=== PATIENT | male | born 1940 | race Caucasian/White ===

== ENCOUNTER 2019-11-10 11:26 | Outpatient (CLI) | payer MEDICARE ==
[2019-11-10 15:17] LABS: #Eosinphils 0.2 thou/uL (0.0-0.7); #Lymphocytes 2.5 thou/uL (1.20-3.40); #Monocytes 0.8 thou/uL (0.11-0.59); #Neutrophils 4.3 thou/uL (1.40-6.50); %Basophils 0.6 % (0.0-1.0); %Eosinophils 2.9 % (0.0-10.0); %Lymphocytes 31.9 % (21.0-51.0); %Monocytes 9.9 % (0.0-10.0); %Neutrophils 54.7 % (42.0-75.0); Hemoglobin 13.7 g/dL (14.0-18.0); Mean Corpuscular HGB CONC 33.1 g/dL (32.0-36.0); Mean Corpuscular Hemoglobin 32.1 pg (27.0-31.0); Mean Corpuscular Volume 96.9 fL (78.0-98.0); Mean Platelet Volume 7.7 fL (7.4-10.4); Platelet Count 159 thou/uL (130-400); RBC Distribution Width 11.7 % (11.5-14.5); Red Blood Cell (RBC) Count 4.26 mill/uL (4.70-6.10); White Blood Cell (WBC) Count 7.8 thou/uL (4.8-10.8)
[2019-11-10 15:24] LABS: Anion Gap 11 mmol/L (10-20); BUN (Urea Nitrogen) 28 mg/dL (8.4-25.7); Calc. Creatinine Clearance 0 mL/min (70-130); Calcium 9.3 mg/dL (7.8-10.44); Carbon Dioxide 29 mmol/L (23-31); Chloride 104 mmol/L (98-107); Estimated GFR-MDRD 49; Glucose 89 mg/dL (83-110); Potassium 3.9 mmol/L (3.5-5.1); Sodium 140 mmol/L (136-145)
== END 2019-11-10 11:27 | disposition home or self-care (01) ==
LOC: LABBT 11:26
PROVIDERS: ATTEND Surgery
DX: Z01.818 Encounter for other preprocedural examination (principal); K40.90 Unilateral inguinal hernia, without obstruction or gangrene, not specified as recurrent
CPT/HCPCS: 80048; 85025

== ENCOUNTER 2019-11-12 11:30 | Day surgery (SDC) | payer MEDICARE ==
[~2019-11-12 11:30] MED LIST: Lidocaine 1% PF 5 ML VIAL ONE; PROPOFOL 200 MG/20 ML VIAL ONE
[2019-11-12] MEDS ORDERED: Midazolam HCl 2 mg/2 ml Vial ONE (13:14)
[2019-11-12] MEDS ORDERED: Fentanyl 250 MCG/5 ML VIAL ONE (13:14)
[2019-11-12] MEDS ORDERED: Bupivacaine 0.25% HCL 30 ML VIAL ONE (13:28)
[2019-11-12] MEDS ORDERED: Lidocaine 1% w/Epinephrine 1:100K 20 ML VIAL ONE (13:28)
[2019-11-12] MEDS ORDERED: Bupivacaine PF 0.5% 30 ML VIAL ONE (13:34)
--- NOTE | 2019-11-12 16:24 | OP ---
DATE OF PROCEDURE: 11/12/2019 PREOPERATIVE DIAGNOSIS: Right inguinal hernia. POSTOPERATIVE DIAGNOSIS: Right inguinal hernia. PROCEDURE PERFORMED: Right inguinal hernia repair with mesh. ANESTHESIA: General. ESTIMATED BLOOD LOSS: Minimal. COMPLICATIONS: None. SPECIMENS: None. FINDINGS: Right inguinal hernia. DESCRIPTION OF PROCEDURE: The patient was taken to the operating room and laid supine on the operating room table. After general anesthetic was obtained, the right groin was shaved, prepped, and draped in a sterile fashion. An oblique incision was made above the pubic tubercle in the right lower quadrant, cautery dissected down through Diana's to expose the external oblique. External oblique fibers were opened along their course to the external ring. Contents of the inguinal canal were dissected in the backside of the external oblique. The cord structures were mobilized on the pubic tubercle using a Teresa drain. The ilioinguinal nerve was found and segmentally removed to prevent postoperative pain. An indirect hernia sac was found and a high ligation was performed using 2-0 silk. There was no direct defect. The PHS extended mesh brought into the sterile field. The preperitoneal space was bluntly dissected through the internal ring. The underlay was placed in the internal ring and its fiber was laid out flat against the posterior abdominal wall. The overlay was laid in the floor of the inguinal canal. The overlay was sewn distally to the pubic tubercle, medially to the transverse arch, laterally to the shelving edge of inguinal ligament using permanent braided suture, the two ends of cut mesh were reapproximated at the shelving edge of inguinal ligament to reform the internal ring. The extra mesh was tucked back under the external oblique proximally. The wound was irrigated. Local anesthetic was applied. The tunneled cath for postoperative pain was started from above the incision, left on top of the mesh. The external oblique was closed using running 3-0 Vicryl, Diana's closed using 3-0 Vicryl, skin was closed using running 4-0 Monocryl and Dermabond. The patient was sent to Recovery in stable condition. All instrument counts, lap counts, and needle counts were correct. Job ID: [id number]
== END 2019-11-12 17:20 | disposition home or self-care (01) ==
LOC: SDC 11:30
PROVIDERS: ATTEND Surgery
PROC: 0YU50JZ Supplement Right Inguinal Region with Synthetic Substitute, Open Approach (ICD-10-PCS; principal; 2019-11-12)
DX: K40.90 Unilateral inguinal hernia, without obstruction or gangrene, not specified as recurrent (principal); I10 Essential (primary) hypertension; E78.5 Hyperlipidemia, unspecified; Z79.899 Other long term (current) drug therapy; Z88.8 Allergy status to other drugs, medicaments and biological substances
CPT/HCPCS: 49505; A4306; C1781; J0690; J2001; J2250; J2704; J3010; S0020

== ENCOUNTER → 2021-07-26 | Day surgery (SDC) | payer MEDICARE ==
[~2021-07-26] MED LIST changes: -PROPOFOL 200 MG/20 ML VIAL ONE; +Sodium Bicarbonate 2.5 MEQ/5 ML VIAL ONE
== END ==
LOC: ULT 12:32
PROVIDERS: ATTEND Student in an Organized Health Care Education/Training Program
PROC: 0G9G3ZX Drainage of Left Thyroid Gland Lobe, Percutaneous Approach, Diagnostic (ICD-10-PCS; principal; 2021-07-26)
DX: E04.2 Nontoxic multinodular goiter (principal); E78.5 Hyperlipidemia, unspecified; I10 Essential (primary) hypertension; K21.9 Gastro-esophageal reflux disease without esophagitis; R40.0 Somnolence; Z85.46 Personal history of malignant neoplasm of prostate; Z79.1 Long term (current) use of non-steroidal anti-inflammatories (NSAID); Z79.899 Other long term (current) drug therapy; Z88.8 Allergy status to other drugs, medicaments and biological substances
CPT/HCPCS: 60100; 76942; 88173

== ENCOUNTER 2021-11-24 09:07 | Outpatient (CLI) | payer MEDICARE | END 2021-11-24 09:08 | disposition home or self-care (01) | LOC: NM 09:07 | PROVIDERS: ATTEND Psychiatry & Neurology Neurology | DX: G30.1 Alzheimer's disease with late onset (principal); F02.80 Dementia in other diseases classified elsewhere, unspecified severity, without behavioral disturbance, psychotic disturbance, mood disturbance, and anxiety | CPT/HCPCS: 78803; A9584 ==

== ENCOUNTER → 2021-12-06 | Day surgery (SDC) | payer MEDICARE | LOC: ULT 12:30 | PROVIDERS: ATTEND Student in an Organized Health Care Education/Training Program | PROC: 0G9G3ZX Drainage of Left Thyroid Gland Lobe, Percutaneous Approach, Diagnostic (ICD-10-PCS; principal; 2021-12-06) | DX: E04.1 Nontoxic single thyroid nodule (principal); Z88.8 Allergy status to other drugs, medicaments and biological substances | CPT/HCPCS: 60100; 76942; 88173; 88305 ==

== ENCOUNTER 2021-12-08 03:43 | Inpatient (IN) | payer MEDICARE ==
[2021-12-08] MEDS ORDERED: Ondansetron PF 4 MG/2 ML Vial ONE (03:59)
[2021-12-08 04:46] LABS: #Eosinphils 0.3 thou/uL (0.0-0.7); #Lymphocytes 2.3 thou/uL (1.20-3.40); #Monocytes 0.6 thou/uL (0.11-0.59); %Basophils 0.4 % (0.0-1.0); %Eosinophils 3.1 % (0.0-10.0); %Lymphocytes 24.6 % (21.0-51.0); %Monocytes 6.9 % (0.0-10.0); Mean Corpuscular HGB CONC 33.2 g/dL (32.0-36.0); Mean Corpuscular Volume 99.5 fL (78.0-98.0); Platelet Count 123 thou/uL (130-400); RBC Distribution Width 11.5 % (11.5-14.5); Red Blood Cell (RBC) Count 3.93 mill/uL (4.70-6.10); White Blood Cell (WBC) Count 9.2 thou/uL (4.8-10.8)
[2021-12-08 05:06] LABS: ALT (SGPT) 23 U/L (8-55); AST (SGOT) 17 U/L (5-34); Albumin 3.4 g/dL (3.4-4.8); Alkaline Phosphatase 56 U/L (40-110); Anion Gap 14 mmol/L (10-20); BUN (Urea Nitrogen) 29 mg/dL (8.4-25.7); Bilirubin, Total 0.4 mg/dL (0.2-1.2); Calc. Creatinine Clearance 0 mL/min (70-130); Calcium 8.3 mg/dL (7.8-10.44); Carbon Dioxide 22 mmol/L (23-31); Chloride 108 mmol/L (98-107); Globulin 2.6 g/dL (2.4-3.5); Glucose 150 mg/dL (83-110); Potassium 3.4 mmol/L (3.5-5.1); Sodium 141 mmol/L (136-145)
[2021-12-08 05:27] LABS: CKMB 1.4 ng/mL (0-6.6)
[2021-12-08] MEDS ORDERED: Potassium Chloride 20 MEQ TAB PO SCH (06:15)
[2021-12-08 07:58] LABS: Troponin I 0.631 ng/mL (< 0.028)
[2021-12-08] MEDS ORDERED: Ondansetron PF 4 MG/2 ML Vial IVP PRN (09:52)
[2021-12-08] MEDS ORDERED: Acetaminophen 500 MG TAB PO PRN (09:52)
[2021-12-08] MEDS ORDERED: Aspirin 81 mg Enteric Coated Tablet PO SCH (09:52)
[2021-12-08] MEDS ORDERED: Ondansetron ODT 4 MG TAB PO PRN (09:52)
[2021-12-08 11:17] LABS: SARS-CoV-2 PCR by NAA Not Detected (NotDetected)
[2021-12-08 11:26] LABS: Troponin I 1.301 ng/mL (< 0.028)
[2021-12-08] MEDS ORDERED: Aspirin 81 mg Enteric Coated Tablet ONE (11:48)
[2021-12-08] MEDS ORDERED: Potassium Chloride 20 MEQ TAB ONE (11:48)
[2021-12-08] MEDS: Sodium Chloride 0.9% 1,000 ML IV SCH ×2 (11:56→21:48)
[2021-12-08] MEDS ORDERED: Enoxaparin Sodium 80 MG/0.8 ML SYRINGE ONE (13:56)
[2021-12-08] MEDS: Midodrine HCl 5 MG TAB PO SCH ×2 (15:19→21:31)
[2021-12-08] MEDS: Potassium Chloride 20 MEQ TAB PO SCH (15:24)
[2021-12-08] MEDS ORDERED: DONEPEZIL HCL 23 MG PO SCH (21:00)
[2021-12-08] MEDS: Famotidine 20 MG TAB PO SCH (21:31)
[2021-12-08] MEDS: carBAMazepine 200 MG TAB PO SCH (21:32)
[2021-12-09 04:36] LABS: Anion Gap 9 mmol/L (10-20); BUN (Urea Nitrogen) 22 mg/dL (8.4-25.7); Calc. Creatinine Clearance 61 mL/min (70-130); Calcium 8.2 mg/dL (7.8-10.44); Carbon Dioxide 26 mmol/L (23-31); Chloride 108 mmol/L (98-107); Glucose 90 mg/dL (83-110); Magnesium 1.8 mg/dL (1.6-2.6); Potassium 3.9 mmol/L (3.5-5.1); Sodium 139 mmol/L (136-145)
[2021-12-09 04:48] LABS: Free T4 (Free Thyroxine) 0.83 ng/dL (0.70-1.48); Thyroid Stimulating Hormone 1.8114 uIU/mL (0.35-4.94)
[2021-12-09 05:51] LABS: #Eosinphils 0.3 thou/uL (0.0-0.7); #Lymphocytes 1.4 thou/uL (1.20-3.40); #Monocytes 0.7 thou/uL (0.11-0.59); #Neutrophils 3.2 thou/uL (1.40-6.50); %Basophils 0.5 % (0.0-1.0); %Lymphocytes 23.9 % (21.0-51.0); %Neutrophils 56.5 % (42.0-75.0); Hemoglobin 11.5 g/dL (14.0-18.0); Mean Corpuscular HGB CONC 32.4 g/dL (32.0-36.0); Mean Platelet Volume 7.2 fL (7.4-10.4); Platelet Count 105 thou/uL (130-400); Platelet Morphology Comment Appears Decreased; RBC Distribution Width 11.4 % (11.5-14.5); Red Blood Cell (RBC) Count 3.49 mill/uL (4.70-6.10); White Blood Cell (WBC) Count 5.6 thou/uL (4.8-10.8)
[2021-12-09] MEDS: Midodrine HCl 5 MG TAB PO SCH ×3 (10:12→21:37)
[2021-12-09] MEDS: Aspirin 81 mg Enteric Coated Tablet PO SCH (10:12)
[2021-12-09] MEDS: Vit A,C & E/Lutein/Minerals Tablet PO SCH (10:12)
[2021-12-09] MEDS: Famotidine 20 MG TAB PO SCH ×2 (10:13→21:40)
[2021-12-09] MEDS: carBAMazepine 200 MG TAB PO SCH ×2 (10:13→21:40)
[2021-12-09] MEDS: Potassium Chloride 20 MEQ TAB PO SCH (10:13)
[2021-12-09] MEDS: Meloxicam 15 MG TAB PO SCH (10:15)
[2021-12-09 13:40] VITALS: BMI 33.0
[2021-12-09] MEDS ORDERED: Lidocaine 1% w/Epinephrine 1:100K 20 ML VIAL ONE (14:25)
[2021-12-09] MEDS ORDERED: Electrolyte Replacement Protocol 1 EACH FS SCH (23:30)
[2021-12-10 05:20] LABS: #Eosinphils 0.4 thou/uL (0.0-0.7); #Lymphocytes 1.4 thou/uL (1.20-3.40); #Monocytes 0.7 thou/uL (0.11-0.59); #Neutrophils 2.8 thou/uL (1.40-6.50); %Basophils 0.5 % (0.0-1.0); %Eosinophils 7.5 % (0.0-10.0); %Lymphocytes 26.7 % (21.0-51.0); %Monocytes 12.7 % (0.0-10.0); %Neutrophils 52.6 % (42.0-75.0); Hemoglobin 12.1 g/dL (14.0-18.0); Mean Corpuscular Hemoglobin 33.9 pg (27.0-31.0); Mean Corpuscular Volume 99.6 fL (78.0-98.0); Mean Platelet Volume 7.3 fL (7.4-10.4); Platelet Count 109 thou/uL (130-400); RBC Distribution Width 11.4 % (11.5-14.5); Red Blood Cell (RBC) Count 3.57 mill/uL (4.70-6.10); White Blood Cell (WBC) Count 5.4 thou/uL (4.8-10.8)
[2021-12-10 05:31] LABS: Anion Gap 8 mmol/L (10-20); BUN (Urea Nitrogen) 15 mg/dL (8.4-25.7); Calc. Creatinine Clearance 75 mL/min (70-130); Calcium 8.4 mg/dL (7.8-10.44); Carbon Dioxide 25 mmol/L (23-31); Chloride 110 mmol/L (98-107); Glucose 92 mg/dL (83-110); Magnesium 1.9 mg/dL (1.6-2.6); Sodium 139 mmol/L (136-145)
[2021-12-10] MEDS ORDERED: Magnesium 2 GM/50 ML 2 GM in Premix Bag 1 BAG IVPB SCH (07:00)
[2021-12-10] MEDS: Sodium Chloride 0.9% 1,000 ML IV SCH (07:51)
[2021-12-10] MEDS: Potassium Chloride 20 MEQ TAB PO SCH ×2 (07:51→08:50)
[2021-12-10] MEDS: Aspirin 81 mg Enteric Coated Tablet PO SCH (08:49)
[2021-12-10] MEDS: Meloxicam 15 MG TAB PO SCH (08:49)
[2021-12-10] MEDS: Vit A,C & E/Lutein/Minerals Tablet PO SCH (08:49)
[2021-12-10] MEDS: Midodrine HCl 5 MG TAB PO SCH (08:50)
[2021-12-10] MEDS: carBAMazepine 200 MG TAB PO SCH (08:50)
[2021-12-10] MEDS: Famotidine 20 MG TAB PO SCH (08:50)
[2021-12-10 12:33] VITALS: BP 154/80; TEMP 97.7
== END 2021-12-10 13:25 | disposition home or self-care (01) | DRG 260 ==
LOC: ERS 03:43 → ERHOLD 06:06 → OBSVTOIN 09:53 → 2NO 14:29
PROVIDERS: ADMIT Internal Medicine; ATTEND Internal Medicine
PROC: 5A12012 Performance of Cardiac Output, Single, Manual (ICD-10-PCS; 2021-12-08)
PROC: 0JH632Z Insertion of Monitoring Device into Chest Subcutaneous Tissue and Fascia, Percutaneous Approach (ICD-10-PCS; principal; 2021-12-09)
DX: I48.0 Paroxysmal atrial fibrillation (principal); I21.A1 Myocardial infarction type 2; N17.9 Acute kidney failure, unspecified; E87.6 Hypokalemia; E04.1 Nontoxic single thyroid nodule; Z20.822 Contact with and (suspected) exposure to COVID-19; I95.1 Orthostatic hypotension; G30.9 Alzheimer's disease, unspecified; F02.80 Dementia in other diseases classified elsewhere, unspecified severity, without behavioral disturbance, psychotic disturbance, mood disturbance, and anxiety; G62.9 Polyneuropathy, unspecified; F41.9 Anxiety disorder, unspecified; M19.90 Unspecified osteoarthritis, unspecified site; N18.2 Chronic kidney disease, stage 2 (mild); D53.9 Nutritional anemia, unspecified; D69.6 Thrombocytopenia, unspecified; I08.2 Rheumatic disorders of both aortic and tricuspid valves; Z85.46 Personal history of malignant neoplasm of prostate; Z90.79 Acquired absence of other genital organ(s); Z98.890 Other specified postprocedural states; Z79.899 Other long term (current) drug therapy; Z88.8 Allergy status to other drugs, medicaments and biological substances
CPT/HCPCS: 33285; 36415; 71045; 80048; 80053; 82553; 83735; 84439; 84443; 84484; 85025; 93005; 93306; 96372; 96374; C1764; J1650; J2405; J3475; J7050; U0003; U0005

== ENCOUNTER 2022-06-19 13:59 | Outpatient (CLI) | payer MEDICARE | END 2022-06-19 14:00 | disposition home or self-care (01) | LOC: CT 13:59 | PROVIDERS: ATTEND Psychiatry & Neurology Neurology | DX: G40.209 Localization-related (focal) (partial) symptomatic epilepsy and epileptic syndromes with complex partial seizures, not intractable, without status epilepticus (principal) | CPT/HCPCS: 70450 ==

== ENCOUNTER 2022-11-24 15:53 | Inpatient (IN) | payer MEDICARE, MEDICAID ==
[~2022-11-24 15:53] MED LIST changes: +Iopamidol-370 76% 500 ML 1 ML ONE; -Lidocaine 1% PF 5 ML VIAL ONE; -Sodium Bicarbonate 2.5 MEQ/5 ML VIAL ONE
[2022-11-24 16:51] LABS: Hemoglobin 13.1 g/dL (14.0-18.0); Mean Corpuscular HGB CONC 33.3 g/dL (32.0-36.0); Mean Corpuscular Hemoglobin 33.2 pg (27.0-31.0); Mean Corpuscular Volume 99.6 fl (78.0-98.0); Platelet Count 165 10x3/uL (130-400); RBC Distribution Width 12.5 % (11.5-14.5); Red Blood Cell (RBC) Count 3.95 mill/uL (4.70-6.10); White Blood Cell (WBC) Count 5.6 10x3/uL (4.8-10.8)
[2022-11-24 16:59] LABS: INR-International Normal Ratio 1.2; Prothrombin Time 15.2 sec (12.0-14.7)
[2022-11-24 17:00] LABS: PTT 26.9 sec (22.9-36.1)
[2022-11-24 17:09] LABS: ALT (SGPT) 10 U/L (8-55); AST (SGOT) 14 U/L (5-34); Albumin 3.6 g/dL (3.4-4.8); Alkaline Phosphatase 82 U/L (40-110); Anion Gap 13 mmol/L (10-20); BUN (Urea Nitrogen) 17 mg/dL (8.4-25.7); Bilirubin, Total 0.4 mg/dL (0.2-1.2); CK (CPK) 36 U/L (30-200); Calc. Creatinine Clearance 0 mL/min (70-130); Calcium 8.8 mg/dL (7.8-10.44); Carbon Dioxide 27 mmol/L (23-31); Chloride 107 mmol/L (98-107); Estimated GFR 70; Globulin 2.6 g/dL (2.4-3.5); Glucose 98 mg/dL (83-110); Potassium 4.3 mmol/L (3.5-5.1); Protein, Total 6.2 g/dL (5.8-8.1); Sodium 143 mmol/L (136-145)
[2022-11-24 17:18] LABS: Eosinophils 4 % (0-10); Lymphocytes 22 % (21-51); MDiff Complete? YES; Monocytes 11 % (0-10); Neutrophil 60 % (42-75); Platelet Morphology Comment Appears Adequate; RBC Morphology Normal; Reactive Lymphocytes 2 % (0-10)
[2022-11-24 17:33] LABS: Bacteria/HPF None Seen HPF (None Seen); Bilirubin Negative (Negative); Blood, Urine Negative (Negative); Clarity Clear (Clear); Glucose, Urine (Dipstick) Normal (Negative); Ketone, Urine Negative (Negative); Leukocyte Negative Leu/uL (Negative); Nitrite Negative (Negative); Protein, Urine (Dipstick) 30 mg/dL (Neg-Trace); RBC/HPF 0-3 HPF (0-3); Specific Gravity, Urine 1.029 (1.002-1.036); Squamous Epithelial 0-3 HPF (0-3); WBC/HPF 0-3 HPF (0-3); pH, Urine 5.5 (5.0-9.0)
[2022-11-24] MEDS ORDERED: Ondansetron PF 4 MG/2 ML Vial IVP PRN (21:50)
[2022-11-24] MEDS ORDERED: Acetaminophen 325 MG TAB PO PRN (21:50)
[2022-11-25 04:43] LABS: Hemoglobin 12.4 g/dL (14.0-18.0); Mean Corpuscular HGB CONC 33.4 g/dL (32.0-36.0); Mean Corpuscular Hemoglobin 33.2 pg (27.0-31.0); Mean Corpuscular Volume 99.5 fl (78.0-98.0); Mean Platelet Volume 7.3 fL (7.4-10.4); Platelet Count 151 10x3/uL (130-400); RBC Distribution Width 12.4 % (11.5-14.5); Red Blood Cell (RBC) Count 3.73 mill/uL (4.70-6.10); White Blood Cell (WBC) Count 4.2 10x3/uL (4.8-10.8)
[2022-11-25 04:56] LABS: Anion Gap 12 mmol/L (10-20); BUN (Urea Nitrogen) 14 mg/dL (8.4-25.7); Calc. Creatinine Clearance 83 mL/min (70-130); Calcium 8.5 mg/dL (7.8-10.44); Carbon Dioxide 24 mmol/L (23-31); Chloride 109 mmol/L (98-107); Estimated GFR 89; Glucose 79 mg/dL (83-110); Potassium 3.9 mmol/L (3.5-5.1); Sodium 141 mmol/L (136-145)
[2022-11-25 05:42] LABS: Band 5 % (5-11); Eosinophils 7 % (0-10); Lymphocytes 21 % (21-51); MDiff Complete? YES; Monocytes 12 % (0-10); Neutrophil 55 % (42-75)
[2022-11-25] MEDS ORDERED: Aspirin 81 mg Enteric Coated Tablet PO SCH (09:00)
[2022-11-25] MEDS: Midodrine HCl 5 MG TAB PO SCH ×2 (10:09→21:47)
[2022-11-25] MEDS: carBAMazepine SR 300 mg Capsule PO SCH ×2 (10:10→21:47)
[2022-11-25] MEDS: Donepezil HCl 10 MG TAB PO SCH (21:47)
[2022-11-26 05:06] LABS: #Eosinphils 0.3 thou/uL (0.0-0.7); #Lymphocytes 1.1 thou/uL (1.20-3.40); #Monocytes 0.8 thou/uL (0.11-0.59); #Neutrophils 4.7 thou/uL (1.40-6.50); %Basophils 0.7 % (0.0-1.0); %Eosinophils 4.2 % (0.0-10.0); %Lymphocytes 15.5 % (21.0-51.0); %Monocytes 11.6 % (0.0-10.0); Hemoglobin 11.8 g/dL (14.0-18.0); Mean Corpuscular HGB CONC 33.4 g/dL (32.0-36.0); Mean Corpuscular Hemoglobin 33.2 pg (27.0-31.0); Mean Corpuscular Volume 99.4 fl (78.0-98.0); Mean Platelet Volume 7.2 fL (7.4-10.4); Platelet Count 156 10x3/uL (130-400); RBC Distribution Width 12.5 % (11.5-14.5); Red Blood Cell (RBC) Count 3.57 mill/uL (4.70-6.10); White Blood Cell (WBC) Count 6.9 10x3/uL (4.8-10.8)
[2022-11-26 05:27] LABS: Anion Gap 11 mmol/L (10-20); BUN (Urea Nitrogen) 12 mg/dL (8.4-25.7); Calc. Creatinine Clearance 79 mL/min (70-130); Calcium 8.5 mg/dL (7.8-10.44); Carbon Dioxide 25 mmol/L (23-31); Chloride 107 mmol/L (98-107); Estimated GFR 88; Glucose 84 mg/dL (83-110); Potassium 3.8 mmol/L (3.5-5.1); Sodium 139 mmol/L (136-145)
[2022-11-26] MEDS ORDERED: FLU VACC QS2022-23(65YR UP)/PF 240 MCG/0.7 ML SYRINGE IM ONE (09:00)
[2022-11-26] MEDS: carBAMazepine SR 300 mg Capsule PO SCH ×2 (09:52→21:58)
[2022-11-26] MEDS: Midodrine HCl 5 MG TAB PO SCH ×2 (09:52→22:38)
[2022-11-26 11:51] VITALS: BMI 26.1
[2022-11-26] MEDS ORDERED: Polyethylene Glycol 3350 17 GM Packet PO SCH (20:00)
[2022-11-26] MEDS: Donepezil HCl 10 MG TAB PO SCH (21:58)
[2022-11-27 06:24] LABS: Anion Gap 15 mmol/L (10-20); BUN (Urea Nitrogen) 11 mg/dL (8.4-25.7); Calc. Creatinine Clearance 87 mL/min (70-130); Calcium 8.5 mg/dL (7.8-10.44); Carbon Dioxide 21 mmol/L (23-31); Chloride 106 mmol/L (98-107); Estimated GFR 90; Glucose 84 mg/dL (83-110); Potassium 3.8 mmol/L (3.5-5.1); Sodium 138 mmol/L (136-145)
[2022-11-27 07:04] LABS: Band 4 % (5-11); Eosinophils 5 % (0-10); Hemoglobin 11.8 g/dL (14.0-18.0); Lymphocytes 20 % (21-51); MDiff Complete? YES; Mean Corpuscular HGB CONC 33.4 g/dL (32.0-36.0); Mean Corpuscular Hemoglobin 33.3 pg (27.0-31.0); Mean Corpuscular Volume 99.5 fl (78.0-98.0); Mean Platelet Volume 7.5 fL (7.4-10.4); Monocytes 6 % (0-10); Neutrophil 65 % (42-75); Platelet Count 153 10x3/uL (130-400); RBC Distribution Width 12.4 % (11.5-14.5); Red Blood Cell (RBC) Count 3.56 mill/uL (4.70-6.10)
[2022-11-27] MEDS ORDERED: Aspirin 81 mg Enteric Coated Tablet PO SCH (09:00)
[2022-11-27] MEDS: Midodrine HCl 5 MG TAB PO SCH (09:31)
[2022-11-27] MEDS: carBAMazepine SR 300 mg Capsule PO SCH (09:32)
[2022-11-27 13:00] VITALS: BP 146/63; TEMP 97.2
== END 2022-11-27 14:03 | DRG 815 ==
LOC: ERS 15:53 → 2NO 21:32 → OBSVTOIN 11-26 16:56
PROVIDERS: ADMIT Internal Medicine Nephrology; ATTEND Nurse Practitioner Family
DX: R59.1 Generalized enlarged lymph nodes (principal); F02.811 Dementia in other diseases classified elsewhere, unspecified severity, with agitation; F05 Delirium due to known physiological condition; Z66 Do not resuscitate; Z20.822 Contact with and (suspected) exposure to COVID-19; I48.0 Paroxysmal atrial fibrillation; E78.5 Hyperlipidemia, unspecified; I95.1 Orthostatic hypotension; D64.9 Anemia, unspecified; G40.909 Epilepsy, unspecified, not intractable, without status epilepticus; E04.1 Nontoxic single thyroid nodule; G30.9 Alzheimer's disease, unspecified; F41.9 Anxiety disorder, unspecified; M47.9 Spondylosis, unspecified; R29.6 Repeated falls; Z85.46 Personal history of malignant neoplasm of prostate; Z90.79 Acquired absence of other genital organ(s); Z87.820 Personal history of traumatic brain injury; Z88.8 Allergy status to other drugs, medicaments and biological substances; Z79.899 Other long term (current) drug therapy; Z79.82 Long term (current) use of aspirin; Z98.890 Other specified postprocedural states; Z91.81 History of falling; Z82.49 Family history of ischemic heart disease and other diseases of the circulatory system
CPT/HCPCS: 36415; 51701; 70450; 71045; 72125; 74177; 80048; 80053; 81003; 81015; 82550; 83615; 83880; 84153; 84443; 84484; 85025; 85610; 85730; 93005; Q9967; U0003; U0005

== ENCOUNTER 2023-01-31 14:25 | Inpatient (IN) | payer MEDICARE, MEDICAID ==
[2023-01-31] MEDS ORDERED: cefTRIAXone (ROCEPHIN) 1 GM VIAL ONE (15:25)
[2023-01-31 15:35] LABS: #Eosinphils 0.1 thou/uL (0.0-0.7); #Lymphocytes 1.5 thou/uL (1.20-3.40); #Monocytes 0.5 thou/uL (0.11-0.59); #Neutrophils 3.4 thou/uL (1.40-6.50); %Basophils 0.9 % (0.0-1.0); %Eosinophils 1.4 % (0.0-10.0); %Lymphocytes 26.9 % (21.0-51.0); %Monocytes 9.5 % (0.0-10.0); %Neutrophils 61.3 % (42.0-75.0); Hemoglobin 14.6 g/dL (14.0-18.0); Mean Corpuscular HGB CONC 33.6 g/dL (32.0-36.0); Mean Corpuscular Hemoglobin 32.8 pg (27.0-31.0); Mean Corpuscular Volume 97.7 fl (78.0-98.0); Mean Platelet Volume 7.7 fL (7.4-10.4); Platelet Count 181 10x3/uL (130-400); RBC Distribution Width 12.7 % (11.5-14.5); Red Blood Cell (RBC) Count 4.45 mill/uL (4.70-6.10); White Blood Cell (WBC) Count 5.6 10x3/uL (4.8-10.8)
[2023-01-31 15:45] LABS: ALT (SGPT) 15 U/L (8-55); AST (SGOT) 17 U/L (5-34); Albumin 3.4 g/dL (3.4-4.8); Alkaline Phosphatase 96 U/L (40-110); Anion Gap 13 mmol/L (10-20); BUN (Urea Nitrogen) 15 mg/dL (8.4-25.7); Bilirubin, Total 0.9 mg/dL (0.2-1.2); CK (CPK) 12 U/L (30-200); Calc. Creatinine Clearance 0 mL/min (70-130); Calcium 8.9 mg/dL (7.8-10.44); Carbon Dioxide 23 mmol/L (23-31); Chloride 102 mmol/L (98-107); Estimated GFR 74; Globulin 3.1 g/dL (2.4-3.5); Glucose 106 mg/dL (83-110); Potassium 3.9 mmol/L (3.5-5.1); Protein, Total 6.5 g/dL (5.8-8.1); Sodium 134 mmol/L (136-145)
[2023-01-31] MEDS ORDERED: Ondansetron PF 4 MG/2 ML Vial IVP PRN (16:57)
[2023-01-31] MEDS ORDERED: Calcium Carbonate 500 MG ChewTAB PO PRN (16:57)
[2023-01-31] MEDS ORDERED: Acetaminophen 325 MG TAB PO PRN (16:57)
[2023-01-31] MEDS ORDERED: Senokot S 8.6-50 MG TAB PO PRN (16:57)
[2023-01-31 17:22] LABS: Bilirubin Negative (Negative); Blood, Urine Negative (Negative); Clarity Clear (Clear); Glucose, Urine (Dipstick) Normal (Negative); Ketone, Urine 10 mg/dL (Negative); Leukocyte Negative Leu/uL (Negative); Nitrite Negative (Negative); Protein, Urine (Dipstick) Negative (Neg-Trace); Specific Gravity, Urine 1.018 (1.002-1.036); Urobilinogen Normal mg/dL (Less than 2); pH, Urine 5.5 (5.0-9.0)
[2023-01-31] MEDS ORDERED: Meropenem 1 GM in Sodium Chloride 0.9% 100 ML IVPB SCH (17:30)
[2023-01-31] MEDS ORDERED: Acetaminophen 325 MG TAB ONE (18:23)
[2023-01-31] MEDS: Sodium Chloride 0.9% 1,000 ML IV SCH (19:17)
[2023-01-31 21:03] VITALS: BMI 22.2
[2023-01-31] MEDS: Donepezil HCl 10 MG TAB PO SCH (22:33)
[2023-01-31] MEDS: Loratadine 10 MG TAB PO SCH (22:34)
[2023-01-31] MEDS: Midodrine HCl 5 MG TAB PO SCH (22:34)
[2023-01-31] MEDS: carBAMazepine 200 MG TAB PO SCH (22:34)
[2023-02-01] MEDS: Sodium Chloride 0.9% 1,000 ML IV SCH (04:30)
[2023-02-01] MEDS: Meropenem 1 GM in Sodium Chloride 0.9% 100 ML IVPB SCH ×3 (04:30→20:17)
[2023-02-01 06:43] LABS: #Eosinphils 0.2 thou/uL (0.0-0.7); #Lymphocytes 0.8 thou/uL (1.20-3.40); #Monocytes 0.6 thou/uL (0.11-0.59); #Neutrophils 2.6 thou/uL (1.40-6.50); %Basophils 0.4 % (0.0-1.0); %Eosinophils 3.9 % (0.0-10.0); %Lymphocytes 19.4 % (21.0-51.0); %Monocytes 13.6 % (0.0-10.0); %Neutrophils 62.6 % (42.0-75.0); Hemoglobin 12.2 g/dL (14.0-18.0); Mean Corpuscular HGB CONC 33.4 g/dL (32.0-36.0); Mean Corpuscular Volume 98.8 fl (78.0-98.0); Mean Platelet Volume 7.3 fL (7.4-10.4); Platelet Count 152 10x3/uL (130-400); RBC Distribution Width 12.3 % (11.5-14.5); White Blood Cell (WBC) Count 4.2 10x3/uL (4.8-10.8)
[2023-02-01 07:04] LABS: ALT (SGPT) 11 U/L (8-55); AST (SGOT) 14 U/L (5-34); Albumin 2.6 g/dL (3.4-4.8); Alkaline Phosphatase 68 U/L (40-110); Anion Gap 12 mmol/L (10-20); BUN (Urea Nitrogen) 14 mg/dL (8.4-25.7); Bilirubin, Total 0.8 mg/dL (0.2-1.2); Calc. Creatinine Clearance 80 mL/min (70-130); Calcium 7.8 mg/dL (7.8-10.44); Carbon Dioxide 21 mmol/L (23-31); Chloride 108 mmol/L (98-107); Estimated GFR 92; Globulin 2.3 g/dL (2.4-3.5); Glucose 79 mg/dL (83-110); Magnesium 1.8 mg/dL (1.6-2.6); Potassium 3.8 mmol/L (3.5-5.1); Protein, Total 4.9 g/dL (5.8-8.1); Sodium 137 mmol/L (136-145)
[2023-02-01] MEDS: Midodrine HCl 5 MG TAB PO SCH ×2 (09:18→20:17)
[2023-02-01] MEDS: Aspirin 81 mg Enteric Coated Tablet PO SCH (09:18)
[2023-02-01] MEDS: carBAMazepine 200 MG TAB PO SCH ×2 (09:19→20:17)
[2023-02-01] MEDS: Lactated Ringer's 1,000 ML IV SCH (14:38)
[2023-02-01] MEDS: Loratadine 10 MG TAB PO SCH (20:17)
[2023-02-01] MEDS: Donepezil HCl 10 MG TAB PO SCH (20:18)
[2023-02-02] MEDS: Meropenem 1 GM in Sodium Chloride 0.9% 100 ML IVPB SCH ×3 (03:53→20:42)
[2023-02-02] MEDS: Lactated Ringer's 1,000 ML IV SCH (03:53)
[2023-02-02 06:57] LABS: #Eosinphils 0.2 thou/uL (0.0-0.7); #Monocytes 0.5 thou/uL (0.11-0.59); #Neutrophils 2.4 thou/uL (1.40-6.50); %Basophils 0.3 % (0.0-1.0); %Eosinophils 5.5 % (0.0-10.0); %Lymphocytes 24.1 % (21.0-51.0); %Monocytes 12.4 % (0.0-10.0); %Neutrophils 57.8 % (42.0-75.0); Hemoglobin 12.5 g/dL (14.0-18.0); Mean Corpuscular HGB CONC 34.1 g/dL (32.0-36.0); Mean Corpuscular Hemoglobin 33.6 pg (27.0-31.0); Mean Corpuscular Volume 98.6 fl (78.0-98.0); Mean Platelet Volume 6.9 fL (7.4-10.4); Platelet Count 167 10x3/uL (130-400); RBC Distribution Width 12.4 % (11.5-14.5); Red Blood Cell (RBC) Count 3.73 mill/uL (4.70-6.10); White Blood Cell (WBC) Count 4.1 10x3/uL (4.8-10.8)
[2023-02-02 07:15] LABS: Anion Gap 11 mmol/L (10-20); BUN (Urea Nitrogen) 16 mg/dL (8.4-25.7); Calc. Creatinine Clearance 80 mL/min (70-130); Carbon Dioxide 22 mmol/L (23-31); Chloride 106 mmol/L (98-107); Estimated GFR 92; Glucose 78 mg/dL (83-110); Magnesium 1.8 mg/dL (1.6-2.6); Potassium 3.9 mmol/L (3.5-5.1); Sodium 135 mmol/L (136-145)
[2023-02-02] MEDS: carBAMazepine 200 MG TAB PO SCH ×2 (09:08→20:42)
[2023-02-02] MEDS: Aspirin 81 mg Enteric Coated Tablet PO SCH (09:09)
[2023-02-02] MEDS: Midodrine HCl 5 MG TAB PO SCH ×2 (09:09→20:43)
[2023-02-02] MEDS: Donepezil HCl 10 MG TAB PO SCH (20:43)
[2023-02-02] MEDS: Loratadine 10 MG TAB PO SCH (20:43)
[2023-02-03 04:35] VITALS: TEMP 98.4
[2023-02-03] MEDS: Meropenem 1 GM in Sodium Chloride 0.9% 100 ML IVPB SCH ×2 (05:18→12:17)
[2023-02-03] MEDS: Midodrine HCl 5 MG TAB PO SCH (09:10)
[2023-02-03] MEDS: carBAMazepine 200 MG TAB PO SCH (09:10)
[2023-02-03] MEDS: Aspirin 81 mg Enteric Coated Tablet PO SCH (09:11)
[2023-02-03 12:02] VITALS: BP 122/75
[2023-02-03 12:43] LABS: Bacteria/HPF None Seen HPF (None Seen); Bilirubin Negative (Negative); Blood, Urine Negative (Negative); CAUTI Indications for Culture Dysuria,urgency,freq; Calcium Oxalate Crystals 1+ HPF (None Seen); Clarity Clear (Clear); Glucose, Urine (Dipstick) Normal (Negative); Ketone, Urine 10 mg/dL (Negative); Leukocyte Negative Leu/uL (Negative); Nitrite Negative (Negative); Protein, Urine (Dipstick) Negative (Neg-Trace); RBC/HPF 0-3 HPF (0-3); Specific Gravity, Urine 1.019 (1.002-1.036); Squamous Epithelial 0-3 HPF (0-3); Urobilinogen Normal mg/dL (Less than 2); WBC/HPF 0-3 HPF (0-3)
[2023-02-03 12:44] LABS: Urine Culture Reflex No No
== END 2023-02-03 15:53 | disposition home or self-care (01) | DRG 689 ==
LOC: SUATTDRO 14:25 → ERS 14:25 → ERHOLD 16:59 → T4-A 20:21 → OBSVTOIN 02-01 15:34
PROVIDERS: ADMIT Internal Medicine; ATTEND Internal Medicine
DX: N39.0 Urinary tract infection, site not specified (principal); G93.41 Metabolic encephalopathy; E87.1 Hypo-osmolality and hyponatremia; E88.09 Other disorders of plasma-protein metabolism, not elsewhere classified; F03.90 Unspecified dementia, unspecified severity, without behavioral disturbance, psychotic disturbance, mood disturbance, and anxiety; Z66 Do not resuscitate; R62.7 Adult failure to thrive; R25.1 Tremor, unspecified; Z88.8 Allergy status to other drugs, medicaments and biological substances; Z79.82 Long term (current) use of aspirin; Z79.899 Other long term (current) drug therapy; Z68.22 Body mass index [BMI] 22.0-22.9, adult; B96.20 Unspecified Escherichia coli [E. coli] as the cause of diseases classified elsewhere; E86.0 Dehydration
CPT/HCPCS: 36415; 80048; 80053; 81001; 81003; 82550; 83605; 83735; 85025; 87040; 87086; 96372; 96375; 96376; G0378; J0696; J1650; J2185; J3490; J7050; J7120